=== PATIENT | female | born 1965 | race Caucasian/White ===

== ENCOUNTER → 2019-01-29 | Outpatient (CLI) | payer BC | END | disposition home or self-care (01) | LOC: LAB 16:56 → LAB SHORT 16:56 | DX: N39.0 Urinary tract infection, site not specified (principal) | CPT/HCPCS: 87077; 87086; 87186 ==

== ENCOUNTER 2021-02-08 12:12 | Emergency (ER) | payer OTHER, BC ==
[~2021-02-08] VITALS: Ht 157.5 cm; Wt 93.0 kg
[2021-02-08] MEDS ORDERED: AMOCLA875 PO (13:50)
== END 2021-02-08 14:11 | disposition home or self-care (01) ==
LOC: ER 12:12
DX: S71.151A Open bite, right thigh, initial encounter (principal); Z23 Encounter for immunization; W54.0XXA Bitten by dog, initial encounter
CPT/HCPCS: 76882; 90471; 90714; 99283-25

== ENCOUNTER 2021-03-12 00:35 | Day surgery (SDC) | payer BC, OTHER ==
[~2021-03-12 00:35] MED LIST: AMOCLA875 PO
== END 2021-03-12 22:59 | disposition home or self-care (01) ==
LOC: WOUND 00:35
DX: S80.11XD Contusion of right lower leg, subsequent encounter (principal); J45.909 Unspecified asthma, uncomplicated; Z86.16 Personal history of COVID-19; W54.0XXD Bitten by dog, subsequent encounter
CPT/HCPCS: G0463